=== PATIENT | female | born 1995 | race Caucasian/White ===

== ENCOUNTER 2017-06-12 04:23 | Emergency (ER) | payer OTHER ==
[~2017-06-12] VITALS: Ht 172.7 cm; Wt 57.9 kg
[2017-06-12 04:27] VITALS: TEMP 36.5; Ht 172.7 cm; Wt 57.9 kg
[2017-06-12] MEDS ORDERED: SODIUM CHLORIDE 0.9% 1000ML 1,000 ML IV STA (04:36)
[2017-06-12] MEDS ORDERED: ONDANSETRON INJ 2 MG/ML 2 ML VIAL IV STA (04:36)
[2017-06-12] MEDS ORDERED: MoRPHine SULFATE 4 MG/ML 1 ML CARP\\VIAL IV STA (04:36)
--- NOTE | 2017-06-12 04:44 | EMERGENCY ROOM VISIT NOTE ---
History Report prepared by Mary: Jack Chisholm Under the Supervision of: Dr. Leroy Logan M.D. First contact with patient: 04:32 Chief Complaint: ABDOMINAL PAIN Stated Complaint: PAIN IN STOMACH History of Present Illness The patient is a 21 year old female who presents to the Emergency Room with complaints of constant sharp abdominal pain that started four days ago. The patient states that the pain started in the lower abdomen, and it has now moved up into her upper abdomen. She denies any nausea, vomiting, fever, urinary symptoms, chest pain, and history of abdominal surgeries. She notes that the pain is worsened with breathing. The patient states that she has a history of psoriasis, and she is currently on Humira. She states that she has not taken anything for pain, and she is not currently on any steroids. She notes that there is no chance of . Source of History: patient Onset: four days ago Position: abdomen Quality: sharp Timing: constant Associated Symptoms: No fevers, No chest pain, No nausea, No vomiting, No urinary symptoms Review of Systems See HPI for pertinent positives & negatives. A total of 10 systems reviewed and were otherwise negative. Past Medical & Surgical Medical Problems: (1) No significant active problems (2) Psoriasis Social History Smoking Status: Current Every Day Smoker Alcohol Use: occasionally Occupation Status: [employer] Current/Historical Medications Scheduled Adalimumab (Humira Pen), 1 DOSE INJ q 2 weeks Sertraline (Zoloft), 50-100 MG PO DAILY Allergies Coded Allergies: No Known Allergies (Unverified , 06/12/17) Physical Exam Vital Signs Date Time Temp Pulse Resp B/P (MAP) Pulse Ox O2 Delivery O2 Flow Rate FiO2 06/12/17 06:05 59 16 92/56 99 Room Air 06/12/17 04:27 36.5 65 16 111/73 98 Room Air Physical Exam GENERAL: Patient is upset appearing and in mild distress. HEENT: No acute trauma, normocephalic atraumatic, mucous membranes moist, no nasal congestion, no scleral icterus. NECK: No stridor, no adenopathy, no meningismus, trachea is midline. LUNGS: No dyspnea. Clear to auscultation and equal bilaterally. No wheeze, no rhonchi. HEART: Regular rate and rhythm. No murmurs, rubs, gallops appreciated. ABDOMEN: Mild tenderness to the right upper quadrant worse with inspiration and palpation. Soft, bowel sounds positive, no masses appreciated, no peritonitis. BACK: No midline tenderness, no CVA tenderness EXTREMITIES: Normal motion all extremities, no cyanosis, no edema. NEUROLOGIC: Alert and oriented, no acute motor or sensory deficits, no focal weakness, cranial nerves grossly intact. SKIN: No rash, no jaundice, no diaphoresis. Medical Decision & Procedures ER Provider Diagnostic Interpretation: Radiology results and stated below per my review and radiologist interpretation: US APPENDIX: Appendix not seen. Free fluid in the right lower quadrant and around the uterine fundus. Radiologist: Tory House M.D. US RUQ: Contracted gallbladder. Somewhat limited evaluation, no obvious stones. No evidence of cholecystitis. No biliary obstruction. Liver, visualized portions of the pancreas are unremarkable. Right kidney unremarkable. Radiologist: Tory House M.D. Laboratory Results 06/12/17 04:50 Red Blood Count 3.86, Mean Corpuscular Volume 96.4, Mean Corpuscular Hemoglobin 32.4, Mean Corpuscular Hemoglobin Concent 33.6, Mean Platelet Volume 10.1, Neutrophils (%) (Auto) 61.8, Lymphocytes (%) (Auto) 24.6, Monocytes (%) (Auto) 11.5, Eosinophils (%) (Auto) 1.6, Basophils (%) (Auto) 0.3, Neutrophils # (Auto ) 5.45, Lymphocytes # (Auto) 2.17, Monocytes # (Auto) 1.01, Eosinophils # (Auto ) 0.14, Basophils # (Auto) 0.03 06/12/17 04:50 Test 06/12/17 04:45 06/12/17 04:50 Urine Color YELLOW Urine Appearance CLEAR (CLEAR) Urine pH 5.5 (4.5-7.5) Urine Specific [place] 1.031 (1.000-1.030) Urine Protein NEG (NEG) Urine Glucose (UA) NEG (NEG) Urine Ketones NEG (NEG) Urine Occult Blood NEG (NEG) Urine Nitrite NEG (NEG) Urine Bilirubin NEG (NEG) Urine Urobilinogen NEG (NEG) Urine Leukocyte Esterase TRACE (NEG) Urine WBC (Auto) 5-10 /hpf (0-5) Urine RBC (Auto) 0-4 /hpf (0-4) Urine Epithelial Cells (Auto) >30 /lpf (0-5) Urine Bacteria (Auto) NEG (NEG) Urine Crystals CALCIUM OXALATE (NONE Urine Mucus PRESENT (NONE PRSENT) Urine Test NEG (NEG) White Blood Count 8.82 K/uL (4.8-10.8) Red Blood Count 3.86 M/uL (4.2-5.4) Hemoglobin 12.5 g/dL (12.0-16.0) Hematocrit 37.2 % (37-47) Mean Corpuscular Volume 96.4 fL (80-100) Mean Corpuscular Hemoglobin 32.4 pg (25-34) Mean Corpuscular Hemoglobin Concent 33.6 g/dl (32-36) Platelet Count 282 K/uL (130-400) Mean Platelet Volume 10.1 fL (7.4-10.4) Neutrophils (%) (Auto) 61.8 % Lymphocytes (%) (Auto) 24.6 % Monocytes (%) (Auto) 11.5 % Eosinophils (%) (Auto) 1.6 % Basophils (%) (Auto) 0.3 % Neutrophils # (Auto) 5.45 K/uL (1.4-6.5) Lymphocytes # (Auto) 2.17 K/uL (1.2-3.4) Monocytes # (Auto) 1.01 K/uL (0.11-0.59) Eosinophils # (Auto) 0.14 K/uL (0-0.5) Basophils # (Auto) 0.03 K/uL (0-0.2) RDW Standard Deviation 46.0 fL (36.4-46.3) RDW Coefficient of Variation 13.2 % (11.5-14.5) Immature Granulocyte % (Auto) 0.2 % Immature Granulocyte # (Auto) 0.02 K/uL (0.00-0.02) Anion Gap 6.0 mmol/L (3-11) Est Creatinine Clear Calc Drug Dose 118.9 ml/min Estimated GFR () 145.2 Estimated GFR (Non- 125.3 BUN/Creatinine Ratio 19.7 (10-20) Calcium Level 8.6 mg/dl (8.5-10.1) Total Bilirubin 0.3 mg/dl (0.2-1) Direct Bilirubin mg/dl (0-0.2) Aspartate Amino Transf (AST/SGOT) 28 U/L (15-37) Alanine Aminotransferase (ALT/SGPT) 22 U/L (12-78) Alkaline Phosphatase 81 U/L (45-117) C-Reactive Protein 0.60 mg/dl (0-0.29) Total Protein 7.4 gm/dl (6.4-8.2) Albumin 3.6 gm/dl (3.4-5.0) Lipase 208 U/L (73-393) Chemistry Specimen Hemolysis Laboratory results as reviewed by me. Medications Administered Medications (Trade) Dose Ordered Sig/Armando Route Start Time Stop Time Status Last Admin Dose Admin Sodium Chloride 1,000 ml @ 999 mls/hr Q1H1M STAT IV 06/12/17 04:36 06/12/17 05:36 DC 06/12/17 04:55 999 MLS/HR ED Course 0432: The patient was evaluated in room B10. A complete history and physical exam was performed. 0436: Sodium Chloride 1000 ml @ 999 mls/hr IV, Zofran 4mg IV, Morphine Sulfate 4mg IV 0615: I reexamined the patient, and she was still having some tenderness to palpation over the right mid abdomen. I discussed the CT scan, but she wants to hold off until the US report comes back 0618: I reevaluated the patient, and she was web machine tender in the right flank. After discussing the pros and cons of CT scans, she wishes to proceed with the scan. 0700: The patient will be signed out to Dr. Chan at the change of shift. Medical Decision Differential: Gall Bladder Dysfunction, Cholecystitis, Appendicitis, Renal Colic , Pyelonephritis, amongst other pathologies entertained. 21 yr old female with right flank pain radiating to RUQ assocaited with pain on movement. Exam with TTP over this area. US with some free fluid in RLQ. Only mildly elevated CRP. She does not have peritonitis. She does not have pelvic discomfort. Urine is clear making UTI, pyelo, stone unlikely. Given persistent pain and fluid in RLQ I discussed options of CT vs monitoring as outpatient and she wishes to proceed with CT. I have thus ordered this and signed her out to Dr Chan awaiting CT findings. Impression Primary Impression: Right flank pain Scribe Attestation The scribe's documentation has been prepared under my direction and personally reviewed by me in its entirety. I confirm that the note above accurately reflects all work, treatment, procedures, and medical decision making performed by me. Departure Information Dispostion Home / Self-Care Referrals [facility] Patient Instructions ED Abdominal Pain Unkn Cause, My [facility]
[2017-06-12 05:03] LABS: BASO % 0.3 %; BASO ABS # 0.03 K/uL (0-0.2); COMPLETE YES; EOS % 1.6 %; HEMATOCRIT 37.2 % (37-47); IG% 0.2 %; LYMPH % 24.6 %; LYMPH ABS # 2.17 K/uL (1.2-3.4); MEAN CELL VOLUME 96.4 fL (80-100); MEAN CORPUSCULAR HEMOGLOBIN 32.4 pg (25-34); MEAN CORPUSCULAR HGB CONC 33.6 g/dl (32-36); MEAN PLATELET VOLUME 10.1 fL (7.4-10.4); MONO % 11.5 %; NEUT % 61.8 %; PLATELET COUNT 282 K/uL (130-400); RED BLOOD COUNT 3.86 M/uL (4.2-5.4); WHITE BLOOD COUNT 8.82 K/uL (4.8-10.8)
[2017-06-12 05:31] LABS: ALKALINE PHOSPHATASE 81 U/L (45-117); ALT/SGPT 22 U/L (12-78); AST/SGOT 28 U/L (15-37); BLOOD UREA NITROGEN 14 mg/dl (7-18); BUN/CREATININE RATIO 19.7 (10-20); CALCIUM 8.6 mg/dl (8.5-10.1); CARBON DIOXIDE 25 mmol/L (21-32); CHLORIDE 108 mmol/L (98-107); CREATININE 0.69 mg/dl (0.60-1.20); GLUCOSE 102 mg/dl (70-99); POTASSIUM 3.9 mmol/L (3.5-5.1); SODIUM 139 mmol/L (136-145)
[2017-06-12 05:49] LABS: URINE APPEARANCE CLEAR (CLEAR); URINE BILIRUBIN NEG (NEG); URINE COLOR YELLOW; URINE EPITHELIAL CELL AUTO >30 /lpf (0-5); URINE NITRITE NEG (NEG); URINE PH 5.5 (4.5-7.5); URINE SPECIFIC GRAVITY 1.031 (1.000-1.030); UROBILINOGEN NEG (NEG); ZZUR CULT IF INDIC CLEAN CATCH NO
[2017-06-12 05:58] LABS: MANUAL MICROSCOPIC REQUIRED? NO; REVIEW REQ? YES
[2017-06-12 06:23] LABS: URINE MUCUS PRESENT (NONE PRSENT)
[2017-06-12] MEDS ORDERED: ADAL40KI INJ (06:46)
[2017-06-12] MEDS ORDERED: SERT50TA PO (06:46)
--- NOTE | 2017-06-12 06:56 | DIAGNOSTIC IMAGING REPORT ---
BILIARY ULTRASOUND CLINICAL HISTORY: Right upper quadrant abdominal pain COMPARISON STUDY: No previous studies for comparison. FINDINGS: The pancreas appears sonographically normal. The liver appears sonographically normal. There is no right-sided hydronephrosis. The gallbladder is contracted but no calculi are visualized. There is no ductal dilatation. The common bile duct measures 3.5 mm. IMPRESSION: Contracted gallbladder. No abnormalities identified. Electronically signed by: Cipriano Weiss M.D. 06/12/2017 6:55 AM Dictated Date/Time: 06/12/2017 6:54 AM
--- NOTE | 2017-06-12 07:27 | DIAGNOSTIC IMAGING REPORT ---
APPENDIX ULTRASOUND HISTORY: Right-sided abdominal pain. COMPARISON: None. FINDINGS: Transabdominal scanning of the right lower quadrant was performed. The appendix was not identified. There are no fluid collections or masses within the right lower quadrant. A small amount of free fluid was noted within the right lower quadrant. IMPRESSION: 1. Nonvisualization of the appendix. If persistent clinical suspicion for acute appendicitis, a CT is recommended. 2. Small amount of free fluid within the right lower quadrant. Electronically signed by: Morales Garza M.D. 06/12/2017 7:25 AM Dictated Date/Time: 06/12/2017 7:25 AM
[2017-06-12] MEDS ORDERED: OPTIRAY 320 IV PRN (07:30)
--- NOTE | 2017-06-12 07:32 | EMERGENCY ROOM VISIT NOTE ---
ED Visit Note Received patient in signout. History and physical verified by me. Rounded on patient at 7:30 in the morning patient is sleeping and was difficult to arouse. Rounded again 0830 pt not in room. Woke pt at 9 AM however pt wishes to continue sleeping. After CAT scan was obtained I was able to do an examination on this patient. She has no abdominal tenderness on examination and is feeling much more comfortable. CAT scan is concerning for a ruptured ovarian cyst and I feel that this is most likely what the patient suffered from listening to her story. She does not have an elevation in her white blood count cell count has a normal liver profile has a normal renal profile. I encouraged patient follow- up with gynecology. She was given a prescription for Percocet for her pain. Problem List Medical Problems: (1) No significant active problems Status: Chronic Current/Historical Medications Scheduled Adalimumab (Humira Pen), 1 DOSE INJ q 2 weeks Sertraline (Zoloft), 50-100 MG PO DAILY Scheduled PRN Oxycodone/Acetaminophen 5MG/325MG (Percocet 5MG/325MG), 1-2 TAB PO Q4H PRN for Pain Allergies Coded Allergies: No Known Allergies (Unverified , 06/12/17) Vital Signs Date Time Temp Pulse Resp B/P (MAP) Pulse Ox O2 Delivery O2 Flow Rate FiO2 06/12/17 10:09 58 18 108/62 98 Room Air 06/12/17 07:47 62 18 98/62 99 Room Air 06/12/17 06:05 59 16 92/56 99 Room Air 06/12/17 04:27 36.5 65 16 111/73 98 Room Air Laboratory Results 06/12/17 04:50 Red Blood Count 3.86, Mean Corpuscular Volume 96.4, Mean Corpuscular Hemoglobin 32.4, Mean Corpuscular Hemoglobin Concent 33.6, Mean Platelet Volume 10.1, Neutrophils (%) (Auto) 61.8, Lymphocytes (%) (Auto) 24.6, Monocytes (%) (Auto) 11.5, Eosinophils (%) (Auto) 1.6, Basophils (%) (Auto) 0.3, Neutrophils # (Auto ) 5.45, Lymphocytes # (Auto) 2.17, Monocytes # (Auto) 1.01, Eosinophils # (Auto ) 0.14, Basophils # (Auto) 0.03 10/18/17 04:50 Test 06/12/17 04:45 06/12/17 04:50 Urine Color YELLOW Urine Appearance CLEAR (CLEAR) Urine pH 5.5 (4.5-7.5) Urine Specific [place] 1.031 (1.000-1.030) Urine Protein NEG (NEG) Urine Glucose (UA) NEG (NEG) Urine Ketones NEG (NEG) Urine Occult Blood NEG (NEG) Urine Nitrite NEG (NEG) Urine Bilirubin NEG (NEG) Urine Urobilinogen NEG (NEG) Urine Leukocyte Esterase TRACE (NEG) Urine WBC (Auto) 5-10 /hpf (0-5) Urine RBC (Auto) 0-4 /hpf (0-4) Urine Epithelial Cells (Auto) >30 /lpf (0-5) Urine Bacteria (Auto) NEG (NEG) Urine Crystals CALCIUM OXALATE (NONE Urine Mucus PRESENT (NONE PRSENT) Urine Test NEG (NEG) White Blood Count 8.82 K/uL (4.8-10.8) Red Blood Count 3.86 M/uL (4.2-5.4) Hemoglobin 12.5 g/dL (12.0-16.0) Hematocrit 37.2 % (37-47) Mean Corpuscular Volume 96.4 fL (80-100) Mean Corpuscular Hemoglobin 32.4 pg (25-34) Mean Corpuscular Hemoglobin Concent 33.6 g/dl (32-36) Platelet Count 282 K/uL (130-400) Mean Platelet Volume 10.1 fL (7.4-10.4) Neutrophils (%) (Auto) 61.8 % Lymphocytes (%) (Auto) 24.6 % Monocytes (%) (Auto) 11.5 % Eosinophils (%) (Auto) 1.6 % Basophils (%) (Auto) 0.3 % Neutrophils # (Auto) 5.45 K/uL (1.4-6.5) Lymphocytes # (Auto) 2.17 K/uL (1.2-3.4) Monocytes # (Auto) 1.01 K/uL (0.11-0.59) Eosinophils # (Auto) 0.14 K/uL (0-0.5) Basophils # (Auto) 0.03 K/uL (0-0.2) RDW Standard Deviation 46.0 fL (36.4-46.3) RDW Coefficient of Variation 13.2 % (11.5-14.5) Immature Granulocyte % (Auto) 0.2 % Immature Granulocyte # (Auto) 0.02 K/uL (0.00-0.02) Anion Gap 6.0 mmol/L (3-11) Est Creatinine Clear Calc Drug Dose 118.9 ml/min Estimated GFR () 145.2 Estimated GFR (Non- 125.3 BUN/Creatinine Ratio 19.7 (10-20) Calcium Level 8.6 mg/dl (8.5-10.1) Total Bilirubin 0.3 mg/dl (0.2-1) Direct Bilirubin mg/dl (0-0.2) Aspartate Amino Transf (AST/SGOT) 28 U/L (15-37) Alanine Aminotransferase (ALT/SGPT) 22 U/L (12-78) Alkaline Phosphatase 81 U/L (45-117) C-Reactive Protein 0.60 mg/dl (0-0.29) Total Protein 7.4 gm/dl (6.4-8.2) Albumin 3.6 gm/dl (3.4-5.0) Lipase 208 U/L (73-393) Chemistry Specimen Hemolysis Medications Administered Medications (Trade) Dose Ordered Sig/Armando Route Start Time Stop Time Status Last Admin Dose Admin Sodium Chloride 1,000 ml @ 999 mls/hr Q1H1M STAT IV 06/12/17 04:36 06/12/17 05:36 DC 06/12/17 04:55 999 MLS/HR Departure Information Impression Primary Impression: Right flank pain Dispostion Home / Self-Care Prescriptions Oxycodone/Acetaminophen 5MG/325MG (PERCOCET 5MG/325MG) Tab 1-2 TAB PO Q4H Y for Pain, #14 TAB Prov: Robby Chan MD 06/12/17 Referrals [facility] (PCP) Patient Instructions My [facility], ED Abdominal Pain Unkn Cause
--- NOTE | 2017-06-12 09:33 | DIAGNOSTIC IMAGING REPORT ---
CT OF THE ABDOMEN AND PELVIS WITH CONTRAST CLINICAL HISTORY: Right flank pain. Free fluid on ultrasound. COMPARISON STUDY: Right upper quadrant and appendix ultrasound performed earlier today. TECHNIQUE: Following IV administration of 93 mL of Optiray-320, axial images of the abdomen and pelvis were obtained from the lung bases to the proximal femurs. Images were reviewed in the axial, sagittal, and coronal planes. IV contrast was administered without complication. A dose lowering technique was utilized adhering to the principles of ALARA. Oral contrast was administered. CT DOSE: 314.28 mGycm FINDINGS: The liver, spleen, adrenal glands, kidneys and pancreas are normal. There is no biliary or pancreatic ductal dilatation. There is no peripancreatic or pericholecystic infiltration. No hydronephrosis is present. The caliber and wall thickness of small and large bowel are normal. The appendix is normal. Intrauterine device is appropriately positioned. A small amount of fluid within the pelvis and right paracolic gutter measures slightly above water attenuation. No suspicious osseous lesion is present. There is no lymphadenopathy. No pneumatosis, free air or portal venous gas is present. IMPRESSION: 1. Normal appendix. No bowel obstruction. 2. Small amount of free fluid within the pelvis and right paracolic gutter which may reflect a ruptured ovarian cyst. 3. Appropriately positioned intrauterine device. Electronically signed by: Morales Garza M.D. 06/12/2017 9:32 AM Dictated Date/Time: 06/12/2017 9:18 AM
[2017-06-12] MEDS ORDERED: OXYC-57 PO (10:03)
[2017-06-12 10:09] VITALS: BP 108/62; PULSE 58; O2SAT 98
== END 2017-06-12 10:26 | disposition home or self-care (01) ==
LOC: C.EDB 04:24
DX: R10.30 Lower abdominal pain, unspecified (principal); R10.10 Upper abdominal pain, unspecified; F17.200 Nicotine dependence, unspecified, uncomplicated; R18.8 Other ascites